=== PATIENT | female | born 1980 | race Two or more races ===

== ENCOUNTER 2018-08-16 20:56 | Emergency (ER) | payer MEDICAID ==
[~2018-08-16] VITALS: Ht 152.4 cm; Wt 72.6 kg
[~2018-08-16 20:56] MED LIST: ACET325 PO; IBUP800 PO; Verotin-Gr Cap1 EACH PO
[2018-08-16] MEDS ORDERED: Vibramycin100 MG PO (22:33)
== END 2018-08-16 22:51 | disposition home or self-care (01) ==
LOC: ER 20:56
DX: S70.362A Insect bite (nonvenomous), left thigh, initial encounter (principal); L03.116 Cellulitis of left lower limb; W57.XXXA Bitten or stung by nonvenomous insect and other nonvenomous arthropods, initial encounter; Z88.2 Allergy status to sulfonamides; Z88.1 Allergy status to other antibiotic agents; Z88.5 Allergy status to narcotic agent; Z88.8 Allergy status to other drugs, medicaments and biological substances; Z79.899 Other long term (current) drug therapy; J45.909 Unspecified asthma, uncomplicated
CPT/HCPCS: 99283